=== PATIENT | male | born 1955 | race Caucasian/White ===

== ENCOUNTER 2017-06-03 14:21 | Observation (INO) ==
[2017-06-03 16:42] LABS: Basophils % 0.2 %; Eosinophils # 0.1 K/mcL (0.0-0.6); Eosinophils % 1.5 %; Hematocrit 50.1 % (37.5-50.1); Hemoglobin 16.5 g/dL (12.9-16.9); Immature Granulocytes % 0.2 % (0-4); Lymphocytes # 1.8 K/mcL (0.6-4.6); Lymphocytes % 21.5 %; Mean Corpuscular HGB Conc 32.9 g/dL (31.6-35.5); Mean Corpuscular Hemoglobin 31.2 pg (28.0-33.3); Mean Corpuscular Volume 94.7 fL (83.0-100.0); Mean Platelet Volume 9.8 fL (9.4-12.4); Monocytes # 0.6 K/mcL (0.0-1.3); Monocytes % 7.7 %; Neutrophils # 5.7 K/mcL (1.6-8.9); Platelet Count 328 K/mcL (140-400); Red Blood Count 5.29 M/mcL (4.19-5.50); Red Cell Distribution Width 13.2 % (11.5-14.5); Segmented Neutrophils % 68.9 %
[2017-06-03 16:47] LABS: Prothrombin Time 10.9 Seconds (9.4-12.1)
--- NOTE | 2017-06-03 16:53 | Electrocardiograph Report ---
[place] [id number] Test Date: 2017-06-03 Pat Name: Baldemar Jerome Department: 104 Room: Gender: M Assembly Lead Person: : 1955 Requested By: Sammy Fine Order Number: [id number] Reading MD: Emy Yoder Measurements Intervals [place] Rate: 74 P: 37 W[place]: 147 QRS: -38 QRSD: 90 T: 50 QT: 349 QTc: 376 Interpretive Statements SINUS RHYTHM MARKED LEFT AXIS DEVIATION Electronically Signed On 06-03-2017 16:51:17 EDT by Emy Yoder
[2017-06-03 17:00] LABS: Troponin I < 0.03 ng/mL (< 0.04)
[2017-06-03 17:59] LABS: BUN/Creatinine Ratio 13 (6-26); Blood Urea Nitrogen 10 mg/dL (6-20); Calcium 9.7 mg/dL (8.6-10.3); Carbon Dioxide 25 mEq/L (23-29); Chloride 107 mEq/L (98-107); Glucose 83 mg/dL (70-105); Osmolality,Calculated 292 (280-300); Potassium 4.6 mEq/L (3.5-5.1); Sodium 142 mEq/L (136-145); eGFR For African Americans > 60 (> 60); eGFR For Non-African Americans > 60 (> 60)
[2017-06-03] MEDS ORDERED: Ipratropium/Albuterol Neb 3 ML IH ONE (18:19)
--- NOTE | 2017-06-03 18:21 | Emergency Department Note ---
Disposition Clinical Impression: Unstable angina Chest pain Qualifiers: Chest pain type: unspecified Qualified Code(s): R07.9 - Chest pain, unspecified Disposition: Admitted As Inpatient Condition: Undetermined Referrals: Florencio Carcamo MD [Primary Care Provider] - Forms: ED Satisfaction Letter Time of Disposition: 20:42 Chest Pain HPI - General Chief Complaint: ED Chest Pain Stated Complaint: Chest Pain Time Seen by Provider: 06/03/17 18:10 Source: patient Mode of arrival: ambulatory Limitations: no limitations Vital Signs Reviewed: Yes Nursing Notes Reviewed: Yes - History of Present Illness HPI Narrative: 61-year-old male with history of smoking, an extensive family history of cardiac disease arrives to the emergency department with complaint of shortness of breath and chest pressure on ambulation primarily when he walks up the incline her steps. The patient states that over the past few days the chest pressure has not subsided and he is having chest pressure at rest. The patient denies any other complaints at this time. He is resting comfortably in the room with stable vital signs. The patient stating that the pressure is on the left lateral chest. The does state that he has been coughing more than normal. He denies any hemoptysis, unilateral leg swelling, recent surgeries, recent immobilizations, history of DVT or PE. Pt complaint: chest pain Severity scale (1-10): 4 Quality: heaviness Associated symptoms: Reports: dyspnea Treatments prior to arrival chest pain: none - Related Data Home Medications Medication Instructions Recorded Confirmed Naproxen Sodium [Aleve] 220 mg PO Q12H PRN 06/03/17 06/03/17 Nitroglycerin [Nitrostat] 0.4 mg SL Q5M PRN 06/03/17 06/03/17 Allergies Allergy/AdvReac Type Severity Reaction Status Date / Time Oxycodone [From Percocet] Allergy See Comment Verified 06/03/17 20:30 Constitutional: Denies: fever, chills, weakness ENT ED: Denies: congestion Cardiovascular: Reports: chest pain, dyspnea on exertion. Denies: orthopnea, syncope Respiratory: Reports: cough, dyspnea. Denies: wheezes, hemoptysis, stridor, sputum production Gastrointestinal: Denies: abdominal pain Musculoskeletal: Denies: back pain Chest Pain PMH - Past Medical History Medical history: Reports: no medical history Surgical history: Reports: cholecystectomy Psychiatric history: Reports: no psych history - Social History Smoking Status: Current every day smoker Alcohol use: Reports: none Drug use: Reports: none Physical Exam - General Limitations: no limitations General appearance: alert, in no apparent distress - Head Head exam: atraumatic, normocephalic, normal inspection - Neck Neck exam: Present: normal inspection, full ROM, trachea midline - Chest Chest inspection: Present: normal inspection, symmetric chest wall rise - Respiratory Respiratory exam: Present: other (Mild wheezing noted on examination.) - Cardiovascular Cardiovascular exam: Present: regular rate, normal rhythm, normal heart sounds - Abdominal Exam Abdominal exam: Present: soft, Non-Tender. Absent: tenderness, distention, guarding, rebound, rigidity - Extremities Exam Extremities exam: Present: normal inspection, full ROM. Absent: tenderness, pedal edema - Neurological Exam Neurological exam: Present: alert, oriented X3 Course Vital Signs Temperature 97.9 F 06/03/17 14:24 Pulse Rate 77 06/03/17 14:24 Respiratory Rate 14 06/03/17 14:24 Blood Pressure 144/86 06/03/17 14:24 O2 Sat by Pulse Oximetry 98 06/03/17 14:24 Temperature 97.9 F 06/03/17 14:24 Pulse Rate 69 06/03/17 18:29 Respiratory Rate 16 06/03/17 19:22 Blood Pressure 129/91 06/03/17 18:29 O2 Sat by Pulse Oximetry 96 06/03/17 19:22 Oxygen Delivery Oxygen Delivery Room Air Chest Pain - MDM Narrative Medical decision making narrative: Patient was given a DuoNeb with an attempt to determine if the patient was experiencing tightness associated with decreased air movement associated with possible wheezing. This did not improve the symptoms. He was given nitroglycerin and aspirin at that time. The patient is experiencing concern for previous stable angina but given the patient is still experiencing chest discomfort while sitting and not guarantee exertion, we are concerned about unstable angina. We will admit the patient to the hospital for further workup and care. The patient made aware and agrees to plan. No further questions or concerns noted at this time. Troponin and EKG demonstrated no acute findings. - Lab Data Lab results reviewed: Yes I reviewed the patient's lab results. Result diagrams: 06/03/17 16:03 06/03/17 16:03 Lab Results 06/03/17 06/03/17 06/03/17 Range/Units 16:03 16:03 16:03 WBC 8.3 (4.3-11.1) K/mcL RBC 5.29 (4.19-5.50) M/mcL Hgb 16.5 (12.9-16.9) g/dL Hct 50.1 (37.5-50.1) % MCV 94.7 (83.0-100.0) fL MCH 31.2 (28.0-33.3) pg MCHC 32.9 (31.6-35.5) g/dL RDW 13.2 (11.5-14.5) % Plt Count 328 (140-400) K/mcL MPV 9.8 (9.4-12.4) fL Immature Gran % 0.2 (0-4) % Seg Neutrophils % 68.9 % Lymphocytes % 21.5 % Monocytes % 7.7 % Eosinophils % 1.5 % Basophils % 0.2 % Neutrophils # 5.7 (1.6-8.9) K/mcL Lymphocytes # 1.8 (0.6-4.6) K/mcL Monocytes # 0.6 (0.0-1.3) K/mcL Eosinophils # 0.1 (0.0-0.6) K/mcL Basophils # 0.0 (0.0-0.2) K/mcL PT 10.9 (9.4-12.1) Seconds INR 1.0 APTT 31.0 (26.0-36.0) Seconds Sodium 142 (136-145) mEq/L Potassium 4.6 (3.5-5.1) mEq/L Chloride 107 (98-107) mEq/L Carbon Dioxide 25 (23-29) mEq/L BUN 10 (6-20) mg/dL Creatinine 0.80 (0.70-1.30) mg/dL Est GFR ( Amer) > 60 (> 60) Est GFR (Non-Af Amer) > 60 (> 60) BUN/Creatinine Ratio 13 (6-26) Glucose 83 (70-105) mg/dL Calculated Osmolality 292 (280-300) Calcium 9.7 (8.6-10.3) mg/dL Troponin I < 0.03 (< 0.04) ng/mL - Radiology Data Radiology results reviewed: Yes I reviewed the patient's radiology results. - EKG Data EKG attestation: Yes I reviewed and interpreted this EKG. EKG results narrative: Heart rate 74 bpm. Normal sinus rhythm. No ST elevation or ST depression noted. Heart Score - Score History: Highly Suspicious EKG: Normal Age: 45-65 Risk Factors: Equal/Greater than 3 risk factor or history of atherosclerotic disease Troponin: Less than normal limit HEART Score Total: 5 Attestation Statement - Attestation Attestation: I, Abner Flores DO, examined this patient [id number] and my medical decision-making was reviewed with Renetta Travis DO, Resident Physician. I agree with the documented findings, disposition and treatment plan as described except to the extent set forth below. Please see my progress notes for details. 61-year-old male seen and examined in conjunction with resident physician. Presents here today with exertional left-sided chest wall pain that radiates up into the anterior aspect of the chest. Patient has no specific cardiac history this time. He does have esophageal achalasia. He denies any trauma or injury. Denies any other symptoms except for several days of persistently worsening exertional dyspnea and exertional chest wall pain and symptoms. Physical exam is unremarkable. Lungs appear to be clear. Heart is regular. Abdomen is soft there is mild tenderness over the left lateral aspect of the chest wall. No rashes or lesions noted. There is no crepitus or deformity. Patient describes being symptom-free here in the emergency room despite every time he goes to walk up a hill or to reach over to knot picker cloth something he has severe pain in the left side of his chest. Patient cardiac workup or treatment course started out in the triage process. Patient negative troponin here. The treatments were given to see if it was some aspect of respiratory related issues secondary to smoking history. Patient did not have any resolution of the breathing issues. Lengthy discussion was described and reviewed at the bedside with concern for possible anginal-like presentation. Patient and family both understand this and appreciate her concern. Patient will be provided with an aspirin here and nitroglycerin trial. We recommended admission for further workup and management and possible evaluation with echocardiogram, stress test or catheterization. Patient does have some significant respiratory including his age smoking history as well as presenting symptoms and exertional presentation. Patient otherwise rested comfortably in the bed. Vital signs are stable. See detailed documentation of the physical exam, medical intervention, medical decision-making and disposition in the resident physician's note. No critical care provider this patient's treatment course at this time 2015 Patient will be admitted to the hospital this time. Patient has had some moderate resolution of the symptoms. Nitroglycerin trial is still in completed. No need for anticoagulation at this point. Patient is otherwise clinically stable. Admission process will be completed for angina-like presentation.
[2017-06-03] MEDS ORDERED: Aspirin 325 MG TABLET PO ONE (19:31)
[2017-06-03] MEDS ORDERED: Nitroglycerin 0.4 MG TAB.SUBL SL PRN (19:31)
[2017-06-04] MEDS ORDERED: Naloxone 0.4 MG/ML INJ IVP PRN (03:28)
[2017-06-04] MEDS ORDERED: Acetaminophen 325 MG TABLET PO PRN (03:28)
[2017-06-04 04:39] LABS: Basophils % 0.5 %; Eosinophils # 0.2 K/mcL (0.0-0.6); Eosinophils % 2.8 %; Hematocrit 44.7 % (37.5-50.1); Hemoglobin 15.3 g/dL (12.9-16.9); Immature Granulocytes % 0.1 % (0-4); Lymphocytes % 27.3 %; Mean Corpuscular HGB Conc 34.2 g/dL (31.6-35.5); Mean Corpuscular Hemoglobin 31.7 pg (28.0-33.3); Mean Corpuscular Volume 92.7 fL (83.0-100.0); Mean Platelet Volume 9.8 fL (9.4-12.4); Monocytes # 0.8 K/mcL (0.0-1.3); Neutrophils # 4.4 K/mcL (1.6-8.9); Platelet Count 309 K/mcL (140-400); Red Blood Count 4.82 M/mcL (4.19-5.50); Red Cell Distribution Width 13.2 % (11.5-14.5); Segmented Neutrophils % 59.3 %
--- NOTE | 2017-06-04 04:47 | Internal Med History&Physical ---
Date of Encounter: 06/04/17 Time of Encounter: 03:00 Assessment and Plan (1) Chest pain Current visit: Yes Status: Acute Patient has chest pain, which is triggered by exercise and response to nitroglycerin. Based on the symptoms, patient seems having stable angina. - Place patient on continuous cardiac monitoring - Check 3 sets of troponin - Place patient on stress test if patient remains pain-free and troponin is negative Qualifiers: Chest pain type: precordial pain Qualified Code(s): R07.2 - Precordial pain (2) Tobacco abuse Current visit: Yes Status: Acute Smoking cessation education. Patient said he does not need nicotine patch Internal Medicine - H&P: HPI Chief complaint: Chest pain Admitted From: Home Plans for Post Hospital Care: Home History of present illness: Mr. Jerome is a 61 year old male without significant past medical history, with history of tobacco smoking, presented to ER for left side chest pressure/pain on and off for about 3-4 months. Patient said chest pain located on left side of chest, radiated to left arm and left neck, usually last 10-30 minutes. Patient has mild shortness of breath when he has the pain. Patient denies nausea or diaphoresis. Patient said that the chest pain can be triggered by exercise, such as climbing up a hill. Patient was given aspirin and nitroglycerin in emergency room today, and he said that these medications are helpful for his chest pain. When I saw patient in the room, he is pain-free and said he is "totally fine". Past Med Surg Social Fam HX - Past Medical History Medical history: no medical history Psychiatric history: no psych history - Past Surgical History Surgical History: cholecystectomy - Social History Smoking Status: Current every day smoker Smokeless Tobacco Status: No Alcohol use: none Drug use: none - Family History Sister Hx Family Cardiac Disorders: Yes (HTN, pacer/defib) Father Hx Family Cardiac Disorders: Yes (AK) Mother Hx Family Cancer: Yes (breast) Internal Medicine - H&P: Meds Naproxen Sodium [Aleve] 220 mg PO Q12H PRN 06/03/17 [History] Nitroglycerin [Nitrostat] 0.4 mg SL Q5M PRN 06/03/17 [History] 3 Allergy/AdvReac Type Severity Reaction Status Date / Time Oxycodone [From Percocet] Allergy See Comment Verified 06/03/17 20:30 All Systems PM: A 10-system review of systems was performed and is negative for pertinent findings except as documented above in the HPI. - Constitutional Vitals: Temp Pulse Resp BP Pulse Ox 97.9 F 68 14 99/59 95 06/04/17 04:01 06/04/17 04:01 06/04/17 04:01 06/04/17 04:01 06/04/17 04:01 General appearance: Present: A&O X 3, pleasant, no acute distress, answers questions appropriately - Head Head exam: Present: atraumatic, normocephalic - Eye Eye exam: Present: PERRL, conjuntiva pink, sclera anicteric Pupils: Present: PERRL - Neck Neck exam general surgery: Present: supple, trachea midline. Absent: lymphadenopathy - Respiratory Respiratory exam: Present: CTAB. Absent: accessory muscle use, rales, rhonchi, wheezes - Cardiovascular Cardiovascular exam: Present: RRR, +S1, +S2. Absent: diastolic murmur, gallop, rubs, systolic murmur - GI/Abdominal GI/Abdominal exam: Present: normal bowel sounds, soft, no peritoneal signs. Absent: distended, tenderness - Extremities Exam Extremities exam: Present: warm, radial pulses palpable and symmetrical. Absent : calf tenderness, cyanotic, pedal edema - Neurological Exam Neurological exam: Present: CN II-XII intact, oriented X3, no focal deficits. Absent: pronater drift, facial droop, speech deficit - Skin Skin exam: Present: dry, intact Internal Med - H&P Results - Labs CBC & Chem 7: 06/03/17 16:03 06/03/17 16:03
[2017-06-04 04:54] LABS: BUN/Creatinine Ratio 18 (6-26); Blood Urea Nitrogen 13 mg/dL (6-20); Calcium 9.2 mg/dL (8.6-10.3); Carbon Dioxide 25 mEq/L (23-29); Chloride 107 mEq/L (98-107); Glucose 97 mg/dL (70-105); Magnesium 2.2 mg/dL (1.6-2.6); Osmolality,Calculated 288 (280-300); Potassium 3.5 mEq/L (3.5-5.1); Sodium 139 mEq/L (136-145); eGFR For African Americans > 60 (> 60); eGFR For Non-African Americans > 60 (> 60)
[2017-06-04] MEDS ORDERED: Regadenoson 0.4 MG/5 ML SYRINGE IVP ONE (06:46)
[2017-06-04 11:04] LABS: Chol/HDL Ratio 4.8 (0-4.9)
[2017-06-04 14:57] VITALS: BP 107/66
--- NOTE | 2017-06-04 15:59 | Discharge Summary ---
Orders not resulted at time of discharge: Pending orders 06/04/17 03:30 NM jalen perf SPECT multi [NM] Routine Date of Encounter: 06/04/17 Time of Encounter: 10:35 - Discharge Diagnosis (1) Chest pain Priority: Primary Status: Acute Comments: Patient reports chest pain for "several months." He reports pressure all over the left side of his chest down to his waist while walking up a hill with his granddaughter. Pressure lasted approximately one hour with shortness of breath , no nausea, no vomiting, no diaphoresis. Episode happened on 06/01, patient did not arrive until 06/03. Episode resolved with rest Troponins were negative 2. Patient's cholesterol is only mildly elevated faces at 206. Patient is thin and apparently very active, I will start him on a statin. Patient denies any chest pain since that initial episode. The pain is not reproducible with palpation, deep inspiration, or movement. EKG was normal sinus without any ST changes. Stress test was negative for ischemia or infarct, gated EF 61%. Recommend risk factor modification including starting statin and aspirin, as well as smoking cessation. Patient has prescription for nitroglycerin, continue use at home, continue aspirin, continue statin Qualifiers: Chest pain type: precordial pain Qualified Code(s): R07.2 - Precordial pain (2) HLD (hyperlipidemia) Priority: Secondary Status: Acute Comments: Cholesterol is only mildly elevated, will start on statin due to need for risk factor modification. Qualifiers: Hyperlipidemia type: unspecified Qualified Code(s): E78.5 - Hyperlipidemia , unspecified (3) Tobacco abuse Priority: Secondary Status: Chronic Comments: Patient smokes approximately one pack per day, he states that he is aware that he needs to stop smoking but has declined nicotine replacement therapy. Hospital course: Mr. Jerome is a 61 year old male with past medical history of chest pain, unstable angina, smoking, hyperlipidemia. Patient reports several month history of left chest pain with exertion. Patient indicates that pain is entire left side of chest from sternum to mid axillary area, including from left shoulder to waist. Patient also reports associated shortness of breath during episode 3 days ago. He denies any nausea, vomiting, or diaphoresis. The episode lasted approximately one hour and was relieved with rest. Patient finally presented to the emergency room 2 days later, he states that he was frightened. Patient with mildly elevated cholesterol, patient is thin and active, will add a statin. She also is a one pack per day smoker. We discussed smoking cessation, he is aware that he needs to stop smoking, however , he denies any need for assistance including nicotine replacement therapy. Recommended that patient follow up closely with primary care in the next 7-10 days and continue to take already prescribed nitroglycerin as needed for his chest pain. EKG was negative for ST changes, was normal sinus rhythm. Stress test was negative for ischemia or infarct with a gated EF of 61%, troponins were negative 2, chest x-ray was negative.. The pain is not reproducible with palpation, movement, or deep inspiration. His lungs are clear throughout, there is no respiratory distress. Recommended that patient follow up with primary care and cardiology for continued ischemic evaluation/workup. Discharge discussed with: patient Time spent discussing smoking cessation with patient: 3 to 10 minutes - Time Spent with Patient Total time spent providing and/or coordinating discharge services: Less than 30 minutes - Discharge Medications Prescriptions: Aspirin Enteric Coated [Aspirin EC] 81 mg PO DAILY #30 tablet. Atorvastatin Calcium [Lipitor] 20 mg PO HS #30 tablet Home Medications: Naproxen Sodium [Aleve] 220 mg PO Q12H PRN 06/03/17 [History] Nitroglycerin [Nitrostat] 0.4 mg SL Q5M PRN 06/03/17 [History] Aspirin Enteric Coated [Aspirin EC] 81 mg PO DAILY #30 tablet. 06/04/17 [Rx] Atorvastatin Calcium [Lipitor] 20 mg PO HS #30 tablet 06/04/17 [Rx] Allergies/Adverse Reactions: 3 Allergy/AdvReac Type Severity Reaction Status Date / Time Oxycodone [From Percocet] Allergy See Comment Verified 06/03/17 20:30 Date of admission: 06/03/17 21:08 Primary care physician: Florencio Carcamo MD Discharging clinician: Missy Springer Anticipated date of discharge: 06/04/17 - Constitutional Vitals: Temp Pulse Resp BP Pulse Ox 97.6 F 73 18 107/66 95 06/04/17 14:56 06/04/17 14:56 06/04/17 14:56 06/04/17 14:56 06/04/17 14:56 General appearance: Present: cooperative, A&O X 3, pleasant, no acute distress, answers questions appropriately - Head Head exam: Present: atraumatic, normal inspection, normocephalic - Eye Eye exam: Present: normal appearance, conjuntiva pink, sclera anicteric - Neck Neck exam general surgery: Present: supple, trachea midline. Absent: lymphadenopathy, tenderness - Respiratory Respiratory exam: Present: CTAB. Absent: accessory muscle use, rales, rhonchi, wheezes - Cardiovascular Cardiovascular exam: Present: RRR, +S1, +S2. Absent: diastolic murmur, gallop, rubs, systolic murmur - GI/Abdominal GI/Abdominal exam: Present: normal bowel sounds, soft. Absent: distended, hepatomegaly, tenderness - Extremities Exam Extremities exam: Present: normal capillary refill, warm, radial pulses palpable and symmetrical. Absent: calf tenderness, cyanotic, pedal edema, tenderness - Neurological Exam Neurological exam: Present: alert, oriented X3, no focal deficits. Absent: facial droop, speech deficit - Skin Skin exam: Present: dry, intact, normal color, warm. Absent: rash - Patient Status Disposition: Home, Self-Care Condition: Good Functional capacity at discharge: independent ambulation Overall status at discharge: patient is back to baseline - Discharge Instructions Follow Up With: Florencio Carcamo MD [Primary Care Provider] - Additional Instructions: Please follow up with primary care provider and cardiology within the next 7-10 days for continued monitoring and workup. Take nitroglycerin that you already have at home for chest pain. Take aspirin and Lipitor daily. Continue other home medications as written. Stop smoking. I will be happy to write you a prescription for nicotine patches or come before you leave. Resume her normal activities and diet as tolerated. Return to the emergency department as needed if your symptoms return or worsen, or if you have any other problems. - Diet and Activity Activity: increase activity as tolerated Diet: low fat, low cholesterol, low salt diet
== END 2017-06-04 17:27 | disposition home or self-care (01) ==
LOC: 3BNU 14:21 → EMEROO 14:21 → 3BNU 22:40
PROVIDERS: ADMIT Internal Medicine Cardiovascular Disease; ATTEND Registered Nurse

== ENCOUNTER 2020-04-05 19:42 | Observation (INO) ==
[2020-04-05] MEDS ORDERED: 0.9 % Sodium Chloride 1,000 ML IVC ONE (19:58)
[2020-04-05 20:15] LABS: Basophils % 0.5 %; Eosinophils # 0.2 K/mcL (0.0-0.6); Eosinophils % 2.3 %; Hematocrit 46.6 % (37.5-50.1); Hemoglobin 15.5 g/dL (12.9-16.9); Immature Granulocytes % 0.2 % (0-4); Lymphocytes # 1.7 K/mcL (0.6-4.6); Lymphocytes % 18.8 %; Mean Corpuscular HGB Conc 33.3 g/dL (31.6-35.5); Mean Corpuscular Hemoglobin 30.9 pg (28.0-33.3); Mean Corpuscular Volume 92.8 fL (83.0-100.0); Mean Platelet Volume 9.2 fL (9.4-12.4); Monocytes # 1.2 K/mcL (0.0-1.3); Monocytes % 13.1 %; Neutrophils # 5.7 K/mcL (1.6-8.9); Platelet Count 323 K/mcL (140-400); Red Blood Count 5.02 M/mcL (4.19-5.50); Red Cell Distribution Width 12.7 % (11.5-14.5); Segmented Neutrophils % 65.1 %; White Blood Count 8.8 K/mcL (4.3-11.1)
[2020-04-05] MEDS: DilTIAZem 50 MG/50 ML IV.SOLN IVC SCH (20:30)
[2020-04-05 20:32] LABS: BUN/Creatinine Ratio 15 (6-26); Blood Urea Nitrogen 14 mg/dL (8-23); Calcium 9.5 mg/dL (8.6-10.3); Carbon Dioxide 28 mEq/L (23-29); Chloride 105 mEq/L (98-107); Glucose 122 mg/dL (70-105); Osmolality,Calculated 292 (280-300); Potassium 3.8 mEq/L (3.5-5.1); Sodium 140 mEq/L (136-145); eGFR For African Americans > 60 (> 60); eGFR For Non-African Americans > 60 (> 60)
[2020-04-05 20:33] LABS: Troponin I < 0.03 ng/mL (< 0.04)
[2020-04-05 20:46] LABS: Thyroid Stimulating Hormone 1.876 mcIU/mL (0.340-5.600)
[2020-04-05] MEDS ORDERED: Perflutren Lipid Microsphere 1.3 ML in 0.9 % Sodium Chloride 8.7 ML IVP PRN (22:40)
[2020-04-05] MEDS ORDERED: Naloxone 0.4 MG/ML INJ IVP PRN (22:53)
[2020-04-05] MEDS ORDERED: *HR* Metoprolol 5 MG/5 ML VIAL IVP ONE (23:02)
[2020-04-06] MEDS: *HR* Heparin 5,000 UNIT/ML VIAL SQ SCH ×4 (00:33→20:22)
[2020-04-06] MEDS: DilTIAZem 50 MG/50 ML IV.SOLN IVC SCH ×3 (00:41→22:41)
[2020-04-06 02:50] LABS: Hematocrit 44.7 % (37.5-50.1); Hemoglobin 14.9 g/dL (12.9-16.9); Mean Corpuscular HGB Conc 33.3 g/dL (31.6-35.5); Mean Corpuscular Hemoglobin 31.4 pg (28.0-33.3); Mean Corpuscular Volume 94.3 fL (83.0-100.0); Mean Platelet Volume 9.5 fL (9.4-12.4); Platelet Count 304 K/mcL (140-400); Red Blood Count 4.74 M/mcL (4.19-5.50); Red Cell Distribution Width 12.6 % (11.5-14.5); White Blood Count 6.7 K/mcL (4.3-11.1)
[2020-04-06 02:53] LABS: Prothrombin Time 12.1 Seconds (9.4-12.1)
[2020-04-06 02:56] LABS: Activated Partial Thrombo Time 29.4 Seconds (26.0-36.0)
[2020-04-06 03:11] LABS: Chol/HDL Ratio 4.7 (0-4.9)
[2020-04-06 03:12] LABS: BUN/Creatinine Ratio 21 (6-26); Blood Urea Nitrogen 16 mg/dL (8-23); Calcium 8.9 mg/dL (8.6-10.3); Carbon Dioxide 26 mEq/L (23-29); Chloride 108 mEq/L (98-107); Glucose 98 mg/dL (70-105); Magnesium 2.2 mg/dL (1.6-2.6); Osmolality,Calculated 291 (280-300); Potassium 4.1 mEq/L (3.5-5.1); Sodium 140 mEq/L (136-145); eGFR For African Americans > 60 (> 60); eGFR For Non-African Americans > 60 (> 60)
[2020-04-06 03:40] LABS: Estimated Average Glucose 117 mg/dl; Hemoglobin A1C 5.7 %
[2020-04-06] MEDS ORDERED: Loratadine 10 MG TABLET PO PRN (09:00)
[2020-04-06] MEDS: Aspirin Enteric Coated 81 MG Tablet PO SCH (10:06)
[2020-04-06] MEDS: Metoprolol XL (24 HR) Succ 25 MG TAB.ER.24H PO SCH (20:22)
[2020-04-07] MEDS: *HR* Heparin 5,000 UNIT/ML VIAL SQ SCH ×2 (04:55→10:01)
[2020-04-07 05:16] LABS: Hemoglobin 15.6 g/dL (12.9-16.9); Mean Corpuscular HGB Conc 32.5 g/dL (31.6-35.5); Mean Corpuscular Hemoglobin 30.1 pg (28.0-33.3); Mean Corpuscular Volume 92.7 fL (83.0-100.0); Mean Platelet Volume 9.2 fL (9.4-12.4); Platelet Count 304 K/mcL (140-400); Red Blood Count 5.18 M/mcL (4.19-5.50); Red Cell Distribution Width 12.4 % (11.5-14.5); White Blood Count 5.9 K/mcL (4.3-11.1)
[2020-04-07 05:38] LABS: BUN/Creatinine Ratio 15 (6-26); Blood Urea Nitrogen 11 mg/dL (8-23); Calcium 9.1 mg/dL (8.6-10.3); Carbon Dioxide 25 mEq/L (23-29); Chloride 105 mEq/L (98-107); Glucose 91 mg/dL (70-105); Osmolality,Calculated 283 (280-300); Potassium 4.1 mEq/L (3.5-5.1); Sodium 137 mEq/L (136-145); eGFR For African Americans > 60 (> 60); eGFR For Non-African Americans > 60 (> 60)
[2020-04-07] MEDS: Aspirin Enteric Coated 81 MG Tablet PO SCH (07:24)
[2020-04-07] MEDS: Metoprolol XL (24 HR) Succ 25 MG TAB.ER.24H PO SCH (07:24)
[2020-04-07 11:11] VITALS: BP 117/68
== END 2020-04-07 14:50 | disposition home or self-care (01) ==
LOC: EMEROOARM 19:42 → 2ANU 19:42 → SUATTDRO 22:34 → 2ANU 22:56
PROVIDERS: ADMIT Student in an Organized Health Care Education/Training Program; ATTEND Internal Medicine

== ENCOUNTER 2020-05-16 10:28 | Observation (INO) ==
[2020-05-16] MEDS ORDERED: *HR* Metoprolol 5 MG/5 ML VIAL IVP ONE (10:59)
[2020-05-16 11:18] LABS: INR 1.2
[2020-05-16 11:21] LABS: Activated Partial Thrombo Time 35.2 Seconds (26.0-36.0); Basophils % 0.4 %; Eosinophils # 0.1 K/mcL (0.0-0.6); Eosinophils % 1.7 %; Hematocrit 50.4 % (37.5-50.1); Hemoglobin 16.9 g/dL (12.9-16.9); Immature Granulocytes % 0.4 % (0-4); Lymphocytes # 1.8 K/mcL (0.6-4.6); Mean Corpuscular HGB Conc 33.5 g/dL (31.6-35.5); Mean Corpuscular Hemoglobin 31.1 pg (28.0-33.3); Mean Corpuscular Volume 92.6 fL (83.0-100.0); Mean Platelet Volume 9.4 fL (9.4-12.4); Monocytes # 0.8 K/mcL (0.0-1.3); Monocytes % 10.6 %; Neutrophils # 4.5 K/mcL (1.6-8.9); Platelet Count 341 K/mcL (140-400); Red Blood Count 5.44 M/mcL (4.19-5.50); Segmented Neutrophils % 61.9 %; White Blood Count 7.2 K/mcL (4.3-11.1)
[2020-05-16 11:36] LABS: BUN/Creatinine Ratio 14 (6-26); Blood Urea Nitrogen 11 mg/dL (8-23); Calcium 9.8 mg/dL (8.6-10.3); Carbon Dioxide 26 mEq/L (23-29); Chloride 107 mEq/L (98-107); Glucose 75 mg/dL (70-105); Osmolality,Calculated 288 (280-300); Potassium 4.1 mEq/L (3.5-5.1); Sodium 140 mEq/L (136-145); Troponin I < 0.03 ng/mL (< 0.04); eGFR For African Americans > 60 (> 60); eGFR For Non-African Americans > 60 (> 60)
[2020-05-16] MEDS ORDERED: Ondansetron 4 MG/2 ML VIAL IVP PRN (13:22)
[2020-05-16] MEDS ORDERED: Naloxone 0.4 MG/ML INJ IVP PRN (13:22)
[2020-05-16] MEDS ORDERED: Acetaminophen 325 MG TABLET PO PRN (13:22)
[2020-05-16] MEDS ORDERED: Nitroglycerin 0.4 MG TAB.SUBL SL PRN (13:23)
[2020-05-16] MEDS ORDERED: Metoprolol XL (24 HR) Succ 50 MG TAB.ER.24H PO ONE (21:00)
[2020-05-16] MEDS: Apixaban 5 MG TABLET PO SCH (22:30)
[2020-05-17 06:47] LABS: Hematocrit 49.1 % (37.5-50.1); Hemoglobin 16.3 g/dL (12.9-16.9); Mean Corpuscular HGB Conc 33.2 g/dL (31.6-35.5); Mean Corpuscular Hemoglobin 30.6 pg (28.0-33.3); Mean Corpuscular Volume 92.1 fL (83.0-100.0); Mean Platelet Volume 9.2 fL (9.4-12.4); Platelet Count 310 K/mcL (140-400); Red Blood Count 5.33 M/mcL (4.19-5.50); White Blood Count 7.5 K/mcL (4.3-11.1)
[2020-05-17 06:51] LABS: INR 1.1; Prothrombin Time 13.1 Seconds (9.4-12.1)
[2020-05-17 06:54] LABS: Activated Partial Thrombo Time 32.8 Seconds (26.0-36.0)
[2020-05-17 07:09] LABS: BUN/Creatinine Ratio 15 (6-26); Blood Urea Nitrogen 12 mg/dL (8-23); Calcium 9.6 mg/dL (8.6-10.3); Carbon Dioxide 27 mEq/L (23-29); Chloride 104 mEq/L (98-107); Chol/HDL Ratio 4.9 (0-4.9); Cholesterol 249 mg/dL (< 200); Glucose 91 mg/dL (70-105); HDL Cholesterol 51 mg/dL (40-59); LDL Cholesterol,Calculated 162 mg/dL (< 100); Magnesium 2.2 mg/dL (1.6-2.6); Osmolality,Calculated 285 (280-300); Sodium 138 mEq/L (136-145); Triglycerides 179 mg/dL (< 150); eGFR For African Americans > 60 (> 60); eGFR For Non-African Americans > 60 (> 60)
[2020-05-17] MEDS ORDERED: Isovue-370 500 ML BOTTLE IVP ONE (08:00)
[2020-05-17] MEDS ORDERED: *HR* Metoprolol 5 MG/5 ML VIAL IVP PRN (08:00)
[2020-05-17] MEDS ORDERED: Metoprolol XL (24 HR) Succ 25 MG TAB.ER.24H PO SCH (09:00)
[2020-05-17] MEDS ORDERED: 0.9 % Sodium Chloride 1,000 ML ONE (09:27)
[2020-05-17] MEDS: Aspirin Enteric Coated 81 MG Tablet PO SCH (11:21)
[2020-05-17] MEDS: Apixaban 5 MG TABLET PO SCH ×2 (11:21→20:22)
[2020-05-17] MEDS: Metoprolol XL (24 HR) Succ 25 MG TAB.ER.24H PO SCH (16:02)
[2020-05-18 03:02] LABS: Hematocrit 48.4 % (37.5-50.1); Hemoglobin 15.8 g/dL (12.9-16.9); Mean Corpuscular HGB Conc 32.6 g/dL (31.6-35.5); Mean Corpuscular Hemoglobin 30.5 pg (28.0-33.3); Mean Corpuscular Volume 93.4 fL (83.0-100.0); Mean Platelet Volume 9.5 fL (9.4-12.4); Platelet Count 307 K/mcL (140-400); Red Blood Count 5.18 M/mcL (4.19-5.50); Red Cell Distribution Width 13.1 % (11.5-14.5); White Blood Count 7.7 K/mcL (4.3-11.1)
[2020-05-18 03:19] LABS: BUN/Creatinine Ratio 17 (6-26); Blood Urea Nitrogen 13 mg/dL (8-23); Calcium 9.4 mg/dL (8.6-10.3); Carbon Dioxide 26 mEq/L (23-29); Chloride 105 mEq/L (98-107); Glucose 93 mg/dL (70-105); Osmolality,Calculated 286 (280-300); Potassium 3.9 mEq/L (3.5-5.1); Sodium 138 mEq/L (136-145); eGFR For African Americans > 60 (> 60); eGFR For Non-African Americans > 60 (> 60)
[2020-05-18] MEDS: Aspirin Enteric Coated 81 MG Tablet PO SCH (08:32)
[2020-05-18] MEDS: Apixaban 5 MG TABLET PO SCH ×2 (08:32→21:53)
[2020-05-18] MEDS: Metoprolol XL (24 HR) Succ 25 MG TAB.ER.24H PO SCH (08:32)
[2020-05-19 07:36] VITALS: BP 107/66
[2020-05-19] MEDS: Apixaban 5 MG TABLET PO SCH (08:19)
[2020-05-19] MEDS: Aspirin Enteric Coated 81 MG Tablet PO SCH (08:19)
[2020-05-19] MEDS: Metoprolol XL (24 HR) Succ 25 MG TAB.ER.24H PO SCH (08:19)
== END 2020-05-19 10:25 | disposition home or self-care (01) ==
LOC: 3BNU 10:28 → EMEROOARM 10:28 → SUATTDRO 13:25 → 3BNU 13:47
PROVIDERS: ADMIT Internal Medicine; ATTEND Internal Medicine

== ENCOUNTER 2020-05-19 17:08 | Observation (INO) ==
[2020-05-19 17:38] LABS: Basophils % 0.3 %; Eosinophils # 0.2 K/mcL (0.0-0.6); Eosinophils % 1.7 %; Hematocrit 48.9 % (37.5-50.1); Hemoglobin 16.8 g/dL (12.9-16.9); Immature Granulocytes % 0.3 % (0-4); Mean Corpuscular HGB Conc 34.4 g/dL (31.6-35.5); Mean Corpuscular Hemoglobin 31.1 pg (28.0-33.3); Mean Corpuscular Volume 90.4 fL (83.0-100.0); Mean Platelet Volume 9.3 fL (9.4-12.4); Monocytes # 0.9 K/mcL (0.0-1.3); Monocytes % 10.4 %; Neutrophils # 5.5 K/mcL (1.6-8.9); Platelet Count 332 K/mcL (140-400); Red Blood Count 5.41 M/mcL (4.19-5.50); Segmented Neutrophils % 64.3 %; White Blood Count 8.6 K/mcL (4.3-11.1)
[2020-05-19 17:57] LABS: BUN/Creatinine Ratio 16 (6-26); Blood Urea Nitrogen 15 mg/dL (8-23); Calcium 9.5 mg/dL (8.6-10.3); Carbon Dioxide 27 mEq/L (23-29); Chloride 105 mEq/L (98-107); Glucose 98 mg/dL (70-105); Magnesium 2.2 mg/dL (1.6-2.6); Osmolality,Calculated 287 (280-300); Potassium 3.6 mEq/L (3.5-5.1); Sodium 138 mEq/L (136-145); eGFR For African Americans > 60 (> 60); eGFR For Non-African Americans > 60 (> 60)
[2020-05-19 19:08] LABS: Troponin I < 0.03 ng/mL (< 0.04)
[2020-05-19] MEDS ORDERED: Naloxone 0.4 MG/ML INJ IVP PRN (20:52)
[2020-05-19] MEDS ORDERED: Acetaminophen 325 MG TABLET PO PRN (20:52)
[2020-05-19] MEDS ORDERED: Ondansetron 4 MG/2 ML VIAL IVP PRN (20:52)
[2020-05-20 05:49] LABS: Hematocrit 48.5 % (37.5-50.1); Hemoglobin 16.3 g/dL (12.9-16.9); Mean Corpuscular HGB Conc 33.6 g/dL (31.6-35.5); Mean Corpuscular Hemoglobin 31.2 pg (28.0-33.3); Mean Corpuscular Volume 92.7 fL (83.0-100.0); Mean Platelet Volume 9.4 fL (9.4-12.4); Platelet Count 310 K/mcL (140-400); Red Blood Count 5.23 M/mcL (4.19-5.50); Red Cell Distribution Width 12.9 % (11.5-14.5); White Blood Count 7.3 K/mcL (4.3-11.1)
[2020-05-20 05:59] LABS: Prothrombin Time 12.1 Seconds (9.4-12.1)
[2020-05-20 06:01] LABS: Activated Partial Thrombo Time 30.3 Seconds (26.0-36.0)
[2020-05-20 06:09] LABS: BUN/Creatinine Ratio 17 (6-26); Blood Urea Nitrogen 13 mg/dL (8-23); Calcium 9.2 mg/dL (8.6-10.3); Carbon Dioxide 25 mEq/L (23-29); Chloride 107 mEq/L (98-107); Glucose 96 mg/dL (70-105); Osmolality,Calculated 288 (280-300); Sodium 139 mEq/L (136-145); eGFR For African Americans > 60 (> 60); eGFR For Non-African Americans > 60 (> 60)
[2020-05-20] MEDS ORDERED: Metoprolol XL (24 HR) Succ 25 MG TAB.ER.24H PO SCH (09:00)
[2020-05-20] MEDS: Aspirin Enteric Coated 81 MG Tablet PO SCH (11:01)
[2020-05-20] MEDS: Apixaban 5 MG TABLET PO SCH ×2 (11:01→22:25)
[2020-05-21 03:01] LABS: Hemoglobin 15.1 g/dL (12.9-16.9); Mean Corpuscular HGB Conc 33.6 g/dL (31.6-35.5); Mean Corpuscular Hemoglobin 30.1 pg (28.0-33.3); Mean Corpuscular Volume 89.6 fL (83.0-100.0); Mean Platelet Volume 9.3 fL (9.4-12.4); Platelet Count 300 K/mcL (140-400); Red Blood Count 5.02 M/mcL (4.19-5.50); Red Cell Distribution Width 12.8 % (11.5-14.5); White Blood Count 7.8 K/mcL (4.3-11.1)
[2020-05-21 03:21] LABS: BUN/Creatinine Ratio 16 (6-26); Blood Urea Nitrogen 12 mg/dL (8-23); Calcium 8.9 mg/dL (8.6-10.3); Carbon Dioxide 27 mEq/L (23-29); Chloride 106 mEq/L (98-107); Glucose 100 mg/dL (70-105); Osmolality,Calculated 286 (280-300); Potassium 4.1 mEq/L (3.5-5.1); Sodium 138 mEq/L (136-145); eGFR For African Americans > 60 (> 60); eGFR For Non-African Americans > 60 (> 60)
[2020-05-21] MEDS ORDERED: Metoprolol XL (24 HR) Succ 25 MG TAB.ER.24H PO SCH (09:00)
[2020-05-21] MEDS: Aspirin Enteric Coated 81 MG Tablet PO SCH (10:09)
[2020-05-21] MEDS: Apixaban 5 MG TABLET PO SCH ×2 (10:09→20:46)
[2020-05-21] MEDS: Metoprolol XL (24 HR) Succ 25 MG TAB.ER.24H PO SCH ×2 (11:15→20:39)
[2020-05-22 01:41] LABS: BUN/Creatinine Ratio 17 (6-26); Blood Urea Nitrogen 14 mg/dL (8-23); Calcium 9.4 mg/dL (8.6-10.3); Carbon Dioxide 28 mEq/L (23-29); Chloride 105 mEq/L (98-107); Glucose 95 mg/dL (70-105); Magnesium 2.1 mg/dL (1.6-2.6); Osmolality,Calculated 288 (280-300); Potassium 3.5 mEq/L (3.5-5.1); Sodium 139 mEq/L (136-145); eGFR For African Americans > 60 (> 60); eGFR For Non-African Americans > 60 (> 60)
[2020-05-22] MEDS: Apixaban 5 MG TABLET PO SCH ×2 (08:06→19:56)
[2020-05-22] MEDS: Aspirin Enteric Coated 81 MG Tablet PO SCH (08:06)
[2020-05-22] MEDS: Metoprolol XL (24 HR) Succ 25 MG TAB.ER.24H PO SCH ×2 (08:07→10:55)
[2020-05-23] MEDS: Apixaban 5 MG TABLET PO SCH ×2 (09:53→20:13)
[2020-05-23] MEDS: Metoprolol XL (24 HR) Succ 25 MG TAB.ER.24H PO SCH (09:53)
[2020-05-23] MEDS: Aspirin Enteric Coated 81 MG Tablet PO SCH (09:53)
[2020-05-23] MEDS ORDERED: ALPRAZolam 0.5 MG TABLET PO ONE (22:55)
[2020-05-24] MEDS ORDERED: *HR* Metoprolol 5 MG/5 ML VIAL IVP ONE (02:09)
[2020-05-24 03:10] LABS: BUN/Creatinine Ratio 17 (6-26); Blood Urea Nitrogen 13 mg/dL (8-23); Calcium 9.2 mg/dL (8.6-10.3); Carbon Dioxide 24 mEq/L (23-29); Chloride 107 mEq/L (98-107); Glucose 104 mg/dL (70-105); Osmolality,Calculated 288 (280-300); Potassium 4.1 mEq/L (3.5-5.1); Sodium 139 mEq/L (136-145); eGFR For African Americans > 60 (> 60); eGFR For Non-African Americans > 60 (> 60)
[2020-05-24] MEDS: Apixaban 5 MG TABLET PO SCH (10:02)
[2020-05-24] MEDS: Aspirin Enteric Coated 81 MG Tablet PO SCH (10:02)
[2020-05-24] MEDS: Metoprolol XL (24 HR) Succ 25 MG TAB.ER.24H PO SCH (10:03)
[2020-05-24 11:42] VITALS: BP 105/65
== END 2020-05-24 12:45 | disposition home or self-care (01) ==
LOC: 2NENU 17:08 → EMEROOARM 17:08 → SUATTDRO 20:22 → 2NENU 20:57
PROVIDERS: ADMIT Internal Medicine; ATTEND Internal Medicine

== ENCOUNTER 2020-05-25 10:56 | Observation (INO) ==
[2020-05-25] MEDS ORDERED: Aspirin 325 MG TABLET PO ONE (11:17)
[2020-05-25] MEDS ORDERED: 0.9 % Sodium Chloride 500 ML IVC ONE (11:18)
[2020-05-25 11:54] LABS: Basophils % 0.3 %; Eosinophils # 0.1 K/mcL (0.0-0.6); Eosinophils % 0.7 %; Hemoglobin 16.4 g/dL (12.9-16.9); Immature Granulocytes % 0.4 % (0-4); Lymphocytes # 2.1 K/mcL (0.6-4.6); Lymphocytes % 19.5 %; Mean Corpuscular HGB Conc 33.5 g/dL (31.6-35.5); Mean Corpuscular Volume 92.6 fL (83.0-100.0); Mean Platelet Volume 9.8 fL (9.4-12.4); Monocytes # 1.2 K/mcL (0.0-1.3); Monocytes % 10.9 %; Neutrophils # 7.4 K/mcL (1.6-8.9); Platelet Count 342 K/mcL (140-400); Red Blood Count 5.29 M/mcL (4.19-5.50); Red Cell Distribution Width 13.1 % (11.5-14.5); Segmented Neutrophils % 68.2 %; White Blood Count 10.9 K/mcL (4.3-11.1)
[2020-05-25 12:02] LABS: INR 1.3; Prothrombin Time 14.7 Seconds (9.4-12.1)
[2020-05-25 12:14] LABS: BUN/Creatinine Ratio 15 (6-26); Blood Urea Nitrogen 13 mg/dL (8-23); Calcium 9.5 mg/dL (8.6-10.3); Carbon Dioxide 28 mEq/L (23-29); Chloride 107 mEq/L (98-107); Glucose 78 mg/dL (70-105); Magnesium 2.3 mg/dL (1.6-2.6); Osmolality,Calculated 291 (280-300); Potassium 4.1 mEq/L (3.5-5.1); Sodium 141 mEq/L (136-145); eGFR For African Americans > 60 (> 60); eGFR For Non-African Americans > 60 (> 60)
[2020-05-25 12:15] LABS: Troponin I < 0.03 ng/mL (< 0.04)
[2020-05-25 12:28] LABS: Thyroid Stimulating Hormone 1.933 mcIU/mL (0.340-5.600)
[2020-05-25] MEDS: DilTIAZem 50 MG/50 ML IV.SOLN IVC SCH (13:06)
[2020-05-25] MEDS ORDERED: Melatonin 3 MG TABLET PO PRN (14:01)
[2020-05-25] MEDS ORDERED: Naloxone 0.4 MG/ML INJ IVP PRN (14:01)
[2020-05-25] MEDS ORDERED: *HR* Promethazine 25 MG/ML VIAL IM PRN (14:01)
[2020-05-25] MEDS ORDERED: Acetaminophen 325 MG TABLET PO PRN (14:01)
[2020-05-25] MEDS: Metoprolol XL (24 HR) Succ 25 MG TAB.ER.24H PO SCH (17:01)
[2020-05-25] MEDS: Apixaban 5 MG TABLET PO SCH (20:56)
[2020-05-26 06:17] LABS: Basophils % 0.3 %; Eosinophils # 0.1 K/mcL (0.0-0.6); Eosinophils % 1.7 %; Hematocrit 45.5 % (37.5-50.1); Hemoglobin 15.2 g/dL (12.9-16.9); Immature Granulocytes % 0.6 % (0-4); Lymphocytes # 1.9 K/mcL (0.6-4.6); Lymphocytes % 26.4 %; Mean Corpuscular HGB Conc 33.4 g/dL (31.6-35.5); Mean Corpuscular Hemoglobin 31.2 pg (28.0-33.3); Mean Corpuscular Volume 93.4 fL (83.0-100.0); Mean Platelet Volume 9.6 fL (9.4-12.4); Monocytes # 0.7 K/mcL (0.0-1.3); Monocytes % 10.1 %; Neutrophils # 4.4 K/mcL (1.6-8.9); Platelet Count 309 K/mcL (140-400); Red Blood Count 4.87 M/mcL (4.19-5.50); Red Cell Distribution Width 13.1 % (11.5-14.5); Segmented Neutrophils % 60.9 %; White Blood Count 7.2 K/mcL (4.3-11.1)
[2020-05-26 06:42] LABS: BUN/Creatinine Ratio 14 (6-26); Blood Urea Nitrogen 11 mg/dL (8-23); Calcium 8.8 mg/dL (8.6-10.3); Carbon Dioxide 28 mEq/L (23-29); Chloride 107 mEq/L (98-107); Glucose 96 mg/dL (70-105); Magnesium 2.1 mg/dL (1.6-2.6); Osmolality,Calculated 289 (280-300); Phosphorous 3.4 mg/dL (2.7-4.5); Potassium 4.1 mEq/L (3.5-5.1); Sodium 140 mEq/L (136-145); eGFR For African Americans > 60 (> 60); eGFR For Non-African Americans > 60 (> 60)
[2020-05-26] MEDS: Aspirin Enteric Coated 81 MG Tablet PO SCH (08:52)
[2020-05-26] MEDS: Metoprolol XL (24 HR) Succ 25 MG TAB.ER.24H PO SCH (08:52)
[2020-05-26] MEDS: Apixaban 5 MG TABLET PO SCH ×2 (08:52→20:16)
[2020-05-26] MEDS: DilTIAZem 50 MG/50 ML IV.SOLN IVC SCH ×3 (09:44→21:45)
[2020-05-27 05:00] LABS: BUN/Creatinine Ratio 16 (6-26); Blood Urea Nitrogen 13 mg/dL (8-23); Calcium 8.9 mg/dL (8.6-10.3); Carbon Dioxide 27 mEq/L (23-29); Chloride 106 mEq/L (98-107); Glucose 95 mg/dL (70-105); Osmolality,Calculated 286 (280-300); Potassium 4.1 mEq/L (3.5-5.1); Sodium 138 mEq/L (136-145); eGFR For African Americans > 60 (> 60); eGFR For Non-African Americans > 60 (> 60)
[2020-05-27] MEDS: Apixaban 5 MG TABLET PO SCH ×2 (08:39→20:27)
[2020-05-27] MEDS: Aspirin Enteric Coated 81 MG Tablet PO SCH (08:39)
[2020-05-28] MEDS: Aspirin Enteric Coated 81 MG Tablet PO SCH (08:16)
[2020-05-28] MEDS: Apixaban 5 MG TABLET PO SCH ×2 (08:17→20:42)
[2020-05-28 09:25] LABS: BUN/Creatinine Ratio 14 (6-26); Blood Urea Nitrogen 11 mg/dL (8-23); Calcium 8.8 mg/dL (8.6-10.3); Carbon Dioxide 28 mEq/L (23-29); Chloride 106 mEq/L (98-107); Glucose 84 mg/dL (70-105); Osmolality,Calculated 285 (280-300); Potassium 3.8 mEq/L (3.5-5.1); Sodium 138 mEq/L (136-145); eGFR For African Americans > 60 (> 60); eGFR For Non-African Americans > 60 (> 60)
[2020-05-29 03:32] LABS: BUN/Creatinine Ratio 16 (6-26); Blood Urea Nitrogen 12 mg/dL (8-23); Calcium 8.9 mg/dL (8.6-10.3); Carbon Dioxide 27 mEq/L (23-29); Chloride 107 mEq/L (98-107); Glucose 96 mg/dL (70-105); Osmolality,Calculated 288 (280-300); Sodium 139 mEq/L (136-145); eGFR For African Americans > 60 (> 60); eGFR For Non-African Americans > 60 (> 60)
[2020-05-29] MEDS: Apixaban 5 MG TABLET PO SCH (08:21)
[2020-05-29] MEDS: Aspirin Enteric Coated 81 MG Tablet PO SCH (08:21)
[2020-05-29 11:23] VITALS: BP 124/63
== END 2020-05-29 11:52 | disposition home or self-care (01) ==
LOC: EMEROOARM 10:56 → 2ANU 10:56 → SUATTDRO 13:11 → 2ANU 13:54
PROVIDERS: ADMIT Internal Medicine; ATTEND Internal Medicine

== ENCOUNTER 2021-01-10 18:44 | Observation (INO) ==
[2021-01-10 19:39] LABS: Basophils % 0.3 %; Eosinophils # 0.2 K/mcL (0.0-0.6); Eosinophils % 1.9 %; Hematocrit 45.4 % (37.5-50.1); Hemoglobin 15.2 g/dL (12.9-16.9); Immature Granulocytes % 0.2 % (0-4); Lymphocytes # 2.1 K/mcL (0.6-4.6); Mean Corpuscular HGB Conc 33.5 g/dL (31.6-35.5); Mean Corpuscular Hemoglobin 31.2 pg (28.0-33.3); Mean Corpuscular Volume 93.2 fL (83.0-100.0); Mean Platelet Volume 9.7 fL (9.4-12.4); Monocytes # 0.9 K/mcL (0.0-1.3); Monocytes % 10.4 %; Neutrophils # 5.6 K/mcL (1.6-8.9); Platelet Count 320 K/mcL (140-400); Red Blood Count 4.87 M/mcL (4.19-5.50); Red Cell Distribution Width 13.2 % (11.5-14.5); Segmented Neutrophils % 63.2 %; White Blood Count 8.9 K/mcL (4.3-11.1)
[2021-01-10 19:57] LABS: BUN/Creatinine Ratio 14 (6-26); Blood Urea Nitrogen 13 mg/dL (8-23); Calcium 9.6 mg/dL (8.6-10.3); Carbon Dioxide 29 mEq/L (23-29); Chloride 106 mEq/L (98-107); Glucose 93 mg/dL (70-105); Osmolality,Calculated 292 (280-300); Potassium 3.9 mEq/L (3.5-5.1); Sodium 141 mEq/L (136-145); Troponin I < 0.03 ng/mL (< 0.04); eGFR For African Americans > 60 (> 60); eGFR For Non-African Americans > 60 (> 60)
[2021-01-10] MEDS ORDERED: Acetaminophen 325 MG TABLET PO PRN (22:40)
[2021-01-10] MEDS ORDERED: Naloxone 0.4 MG/ML INJ IVP PRN (22:40)
[2021-01-10] MEDS ORDERED: Ondansetron 4 MG/2 ML VIAL IVP PRN (22:40)
[2021-01-10 23:16] LABS: Bilirubin,Urine Negative (Negative); Blood,Urine Negative (Negative); Clarity,Urine Clear (Clear); Color,Urine Colorless (Yellow); Glucose,Urine (UA) Normal (Normal); Ketones,Urine Negative (Negative); Leukocyte Esterase,Urine Negative (Negative); Nitrite,Urine Negative (Negative); PH,Urine 6.5 pH Units (5.0-8.0); Protein,Urine Negative (Neg-Trace); Specific Gravity,Urine 1.006 (1.010-1.025); Urobilinogen,Urine Normal (Normal)
[2021-01-11] MEDS ORDERED: Ipratropium/Albuterol Neb 3 ML IH PRN (00:12)
[2021-01-11 03:07] LABS: Basophils % 0.3 %; Eosinophils # 0.1 K/mcL (0.0-0.6); Eosinophils % 2.1 %; Hematocrit 41.4 % (37.5-50.1); Hemoglobin 13.7 g/dL (12.9-16.9); Immature Granulocytes % 0.3 % (0-4); Lymphocytes # 1.8 K/mcL (0.6-4.6); Lymphocytes % 29.1 %; Mean Corpuscular HGB Conc 33.1 g/dL (31.6-35.5); Mean Corpuscular Hemoglobin 30.6 pg (28.0-33.3); Mean Corpuscular Volume 92.6 fL (83.0-100.0); Mean Platelet Volume 9.6 fL (9.4-12.4); Monocytes # 0.7 K/mcL (0.0-1.3); Monocytes % 10.6 %; Neutrophils # 3.6 K/mcL (1.6-8.9); Platelet Count 264 K/mcL (140-400); Red Blood Count 4.47 M/mcL (4.19-5.50); Red Cell Distribution Width 13.3 % (11.5-14.5); Segmented Neutrophils % 57.6 %; White Blood Count 6.3 K/mcL (4.3-11.1)
[2021-01-11 03:16] LABS: INR 1.1; Prothrombin Time 12.1 Seconds (9.4-12.1)
[2021-01-11 03:28] LABS: Alanine Aminotransferase 20 Units/L (7-52); Albumin 3.6 g/dL (3.5-5.7); Albumin/Globulin Ratio 1.7 (1.1-2.2); Alkaline Phosphatase 64 Units/L (34-104); Aspartate Amino Transferase 19 Units/L (13-39); BUN/Creatinine Ratio 13 (6-26); Bilirubin,Direct 0.1 mg/dL (0.0-0.2); Bilirubin,Indirect 0.4 mg/dL (0.0-1.0); Bilirubin,Total 0.5 mg/dL (0.3-1.0); Blood Urea Nitrogen 10 mg/dL (8-23); Calcium 8.7 mg/dL (8.6-10.3); Carbon Dioxide 28 mEq/L (23-29); Chloride 108 mEq/L (98-107); Chol/HDL Ratio 2.6 (0-4.9); Cholesterol 102 mg/dL (< 200); Globulin 2.1 g/dL (2.4-3.5); Glucose 92 mg/dL (70-105); HDL Cholesterol 40 mg/dL (40-59); LDL Cholesterol,Calculated 41 mg/dL (< 100); Magnesium 2.2 mg/dL (1.6-2.6); Osmolality,Calculated 291 (280-300); Phosphorous 3.3 mg/dL (2.7-4.5); Potassium 3.9 mEq/L (3.5-5.1); Sodium 141 mEq/L (136-145); Total Protein 5.7 g/dL (6.4-8.9); Triglycerides 103 mg/dL (< 150); eGFR For African Americans > 60 (> 60); eGFR For Non-African Americans > 60 (> 60)
[2021-01-11 03:40] LABS: Thyroid Stimulating Hormone 1.491 mcIU/mL (0.340-5.600)
[2021-01-11] MEDS ORDERED: Apixaban 5 MG TABLET PO SCH (09:00)
[2021-01-11] MEDS ORDERED: Aspirin Enteric Coated 81 MG Tablet PO SCH (09:00)
[2021-01-11] MEDS ORDERED: Tiotropium 10 INH DOSE IH SCH (10:00)
[2021-01-11 11:38] VITALS: BP 116/55; PULSE 58; TEMP 97.7; O2SAT 95
== END 2021-01-11 13:46 | disposition home or self-care (01) ==
LOC: 2NENU 18:44 → EMEROOARM 18:44 → SUATTDRO 21:57 → 2NENU 22:32
PROVIDERS: ADMIT Internal Medicine; ATTEND Internal Medicine

== ENCOUNTER 2021-11-07 07:04 | Observation (INO) ==
[2021-11-07] MEDS ORDERED: Piperacillin/Tazobactam 3.375 GM in 0.9 % Sodium Chloride Mini Bag 100 ML IVPB ONE (08:52)
[2021-11-07] MEDS ORDERED: Ondansetron 4 MG/2 ML VIAL IVP ONE (08:58)
[2021-11-07 09:28] LABS: Basophils % 0.2 %; Hematocrit 48.1 % (37.5-50.1); Hemoglobin 16.1 g/dL (12.9-16.9); Immature Granulocytes % 0.6 % (0-4); Lymphocytes # 0.2 K/mcL (0.6-4.6); Lymphocytes % 1.5 %; Mean Corpuscular HGB Conc 33.5 g/dL (31.6-35.5); Mean Corpuscular Volume 92.7 fL (83.0-100.0); Mean Platelet Volume 9.3 fL (9.4-12.4); Monocytes # 0.5 K/mcL (0.0-1.3); Monocytes % 4.5 %; Neutrophils # 9.5 K/mcL (1.6-8.9); Platelet Count 212 K/mcL (140-400); Red Blood Count 5.19 M/mcL (4.19-5.50); Red Cell Distribution Width 13.9 % (11.5-14.5); Segmented Neutrophils % 93.2 %; White Blood Count 10.2 K/mcL (4.3-11.1)
[2021-11-07 09:44] LABS: Albumin 4.3 g/dL (3.5-5.7); Albumin/Globulin Ratio 1.8 (1.1-2.2); Bilirubin,Direct 0.2 mg/dL (0.0-0.2); Bilirubin,Indirect 0.8 mg/dL (0.0-1.0); Globulin 2.4 g/dL (2.4-3.5); Potassium 4.1 mEq/L (3.5-5.1); Total Protein 6.7 g/dL (6.4-8.9)
[2021-11-07 09:53] LABS: Platelet Estimate Normal (Normal)
[2021-11-07 10:11] LABS: Bilirubin,Urine Negative (Negative); Blood,Urine Trace (Negative); Clarity,Urine Clear (Clear); Color,Urine Yellow (Yellow); Glucose,Urine (UA) Normal (Normal); Ketones,Urine Negative (Negative); Leukocyte Esterase,Urine Negative (Negative); Mucus,Urine Few per lpf (None-Few); Nitrite,Urine Negative (Negative); PH,Urine 6.5 pH Units (5.0-8.0); Protein,Urine 30 mg/dL (Neg-Trace); Specific Gravity,Urine 1.028 (1.010-1.025); Squamous Epithelial Cell,Urine Few per hpf (None-Few); Urobilinogen,Urine Normal (Normal); WBC,Urine 0-3 per hpf (0-3)
[2021-11-07] MEDS ORDERED: Ondansetron 4 MG/2 ML VIAL IVP PRN (11:08)
[2021-11-07] MEDS ORDERED: Mag Hydrox/Al Hydrox/Simeth 30 ML UDC PO PRN (11:08)
[2021-11-07] MEDS ORDERED: Naloxone 0.4 MG/ML INJ IVP PRN (11:08)
[2021-11-07 13:36] LABS: Adenovirus Not Detected (Not Detect); Bordetella Pertussis Not Detected (Not Detect); Chlamydophila pneumoniae Not Detected (Not Detect); Coronavirus 229E Not Detected (Not Detect); Coronavirus HKU1 Not Detected (Not Detect); Coronavirus NL63 Not Detected (Not Detect); Coronavirus OC43 Not Detected (Not Detect); Human Metapneumovirus Not Detected (Not Detect); Human Rhinovirus/Enterovirus Not Detected (Not Detect); Influenza A Subtype 2009 H1 Not Detected (Not Detect); Influenza B Not Detected (Not Detect); Mycoplasma pneumoniae Not Detected (Not Detect); Parainfluenza Virus 1 Not Detected (Not Detect); Parainfluenza Virus 2 Not Detected (Not Detect); Parainfluenza Virus 3 Not Detected (Not Detect); Parainfluenza Virus 4 Not Detected (Not Detect); Respiratory Syncytial Virus Not Detected (Not Detect); SARS-CoV-2 Not Detected (Not Detect)
[2021-11-07] MEDS: Acetaminophen 325 MG TABLET PO PRN (13:46)
[2021-11-07] MEDS ORDERED: Ketorolac 30 MG/ML VIAL IVP ONE (14:30)
[2021-11-07] MEDS: 0.9 % Sodium Chloride 1,000 ML IVC SCH ×2 (14:45→16:05)
[2021-11-07] MEDS: Piperacillin/Tazobactam 3.375 GM in 0.9 % Sodium Chloride Mini Bag 100 ML IVPB SCH (16:04)
[2021-11-07] MEDS: Apixaban 5 MG TABLET PO SCH (21:00)
[2021-11-07] MEDS: Budesonide/Formoterol 160/4.5 1 PUFF INH IH SCH (21:54)
[2021-11-08] MEDS: Piperacillin/Tazobactam 3.375 GM in 0.9 % Sodium Chloride Mini Bag 100 ML IVPB SCH ×3 (00:31→15:29)
[2021-11-08] MEDS: Acetaminophen 325 MG TABLET PO PRN ×2 (00:35→15:29)
[2021-11-08 02:56] LABS: Hematocrit 41.7 % (37.5-50.1); Mean Corpuscular HGB Conc 34.1 g/dL (31.6-35.5); Mean Corpuscular Hemoglobin 30.7 pg (28.0-33.3); Mean Corpuscular Volume 90.3 fL (83.0-100.0); Platelet Count 184 K/mcL (140-400); Red Blood Count 4.62 M/mcL (4.19-5.50); Red Cell Distribution Width 13.9 % (11.5-14.5)
[2021-11-08 02:57] LABS: Hemoglobin 14.2 g/dL (12.9-16.9)
[2021-11-08 03:18] LABS: BUN/Creatinine Ratio 15 (6-26); Blood Urea Nitrogen 13 mg/dL (8-23); Carbon Dioxide 23 mEq/L (23-29); Chloride 102 mEq/L (98-107); Glucose 106 mg/dL (70-105); Magnesium 1.8 mg/dL (1.6-2.6); Osmolality,Calculated 273 (280-300); Potassium 3.5 mEq/L (3.5-5.1); Sodium 131 mEq/L (136-145)
[2021-11-08] MEDS ORDERED: Tiotropium 10 INH DOSE IH ONE (07:58)
[2021-11-08] MEDS: Tiotropium 10 INH DOSE IH SCH (07:59)
[2021-11-08] MEDS: Budesonide/Formoterol 160/4.5 1 PUFF INH IH SCH ×2 (07:59→20:56)
[2021-11-08] MEDS: Apixaban 5 MG TABLET PO SCH ×2 (08:18→20:12)
[2021-11-09] MEDS: Piperacillin/Tazobactam 3.375 GM in 0.9 % Sodium Chloride Mini Bag 100 ML IVPB SCH ×2 (00:03→08:42)
[2021-11-09 03:59] LABS: Hematocrit 43.1 % (37.5-50.1); Hemoglobin 14.2 g/dL (12.9-16.9); Mean Corpuscular HGB Conc 32.9 g/dL (31.6-35.5); Mean Corpuscular Hemoglobin 30.3 pg (28.0-33.3); Mean Corpuscular Volume 91.9 fL (83.0-100.0); Mean Platelet Volume 9.8 fL (9.4-12.4); Platelet Count 177 K/mcL (140-400); Red Blood Count 4.69 M/mcL (4.19-5.50); Red Cell Distribution Width 14.1 % (11.5-14.5); White Blood Count 6.4 K/mcL (4.3-11.1)
[2021-11-09 04:13] LABS: BUN/Creatinine Ratio 12 (6-26); Blood Urea Nitrogen 10 mg/dL (8-23); Calcium 8.2 mg/dL (8.6-10.3); Carbon Dioxide 28 mEq/L (23-29); Chloride 104 mEq/L (98-107); Glucose 94 mg/dL (70-105); Osmolality,Calculated 287 (280-300); Potassium 3.9 mEq/L (3.5-5.1); Sodium 139 mEq/L (136-145)
[2021-11-09 05:38] LABS: Eosinophils # 0.3 K/mcL (0.0-0.6); Monocytes # 0.7 K/mcL (0.0-1.3); Neutrophils # 4.5 K/mcL (1.6-8.9); Platelet Estimate Normal (Normal)
[2021-11-09] MEDS: Tiotropium 10 INH DOSE IH SCH (07:33)
[2021-11-09] MEDS: Budesonide/Formoterol 160/4.5 1 PUFF INH IH SCH (07:35)
[2021-11-09] MEDS: Apixaban 5 MG TABLET PO SCH (08:41)
[2021-11-09 11:42] VITALS: BP 110/76; PULSE 86; TEMP 97.7; O2SAT 96
== END 2021-11-09 13:51 | disposition home or self-care (01) ==
LOC: 3ANU 07:04 → EMEROOARM 07:04 → SUATTDRO 14:56 → 3ANU 16:20
PROVIDERS: ADMIT Internal Medicine; ATTEND Family Medicine

== ENCOUNTER 2021-12-12 07:03 | Observation (INO) ==
[2021-12-12] MEDS ORDERED: Iopamidol - 370 500 ML MLS IVP ONE (08:05)
[2021-12-12 08:24] LABS: Hematocrit 48.7 % (37.5-50.1); Hemoglobin 16.6 g/dL (12.9-16.9); Mean Corpuscular HGB Conc 34.1 g/dL (31.6-35.5); Mean Corpuscular Hemoglobin 31.1 pg (28.0-33.3); Mean Corpuscular Volume 91.4 fL (83.0-100.0); Mean Platelet Volume 9.4 fL (9.4-12.4); Platelet Count 231 K/mcL (140-400); Red Blood Count 5.33 M/mcL (4.19-5.50); Red Cell Distribution Width 13.8 % (11.5-14.5); White Blood Count 12.8 K/mcL (4.3-11.1)
[2021-12-12 08:34] LABS: INR 1.1; Prothrombin Time 12.4 Seconds (9.4-12.1)
[2021-12-12 08:37] LABS: Activated Partial Thrombo Time 33.1 Seconds (26.0-36.0)
[2021-12-12 08:46] LABS: Alanine Aminotransferase 22 Units/L (7-52); Albumin 4.2 g/dL (3.5-5.7); Albumin/Globulin Ratio 1.6 (1.1-2.2); Alkaline Phosphatase 65 Units/L (34-104); Aspartate Amino Transferase 20 Units/L (13-39); BUN/Creatinine Ratio 13 (6-26); Bilirubin,Direct 0.1 mg/dL (0.0-0.2); Bilirubin,Indirect 0.5 mg/dL (0.0-1.0); Bilirubin,Total 0.6 mg/dL (0.3-1.0); Blood Urea Nitrogen 12 mg/dL (8-23); Calcium 9.3 mg/dL (8.6-10.3); Carbon Dioxide 26 mEq/L (23-29); Chloride 103 mEq/L (98-107); Globulin 2.6 g/dL (2.4-3.5); Glucose 89 mg/dL (70-105); Magnesium 1.8 mg/dL (1.6-2.6); Osmolality,Calculated 283 (280-300); Phosphorous 1.5 mg/dL (2.7-4.5); Potassium 4.2 mEq/L (3.5-5.1); Sodium 137 mEq/L (136-145); Total Protein 6.8 g/dL (6.4-8.9)
[2021-12-12 08:47] LABS: Troponin I < 0.03 ng/mL (< 0.04)
[2021-12-12 08:56] LABS: Lymphocytes # 0.4 K/mcL (0.6-4.6); Monocytes # 0.1 K/mcL (0.0-1.3); Neutrophils # 12.3 K/mcL (1.6-8.9); Platelet Estimate Normal (Normal)
[2021-12-12 09:03] LABS: Bacteria,Urine Few per hpf (None-Few); Bilirubin,Urine Negative (Negative); Blood,Urine Small (Negative); Clarity,Urine Clear (Clear); Color,Urine Light-Yellow (Yellow); Glucose,Urine (UA) Normal (Normal); Ketones,Urine Negative (Negative); Leukocyte Esterase,Urine Negative (Negative); Mucus,Urine Few per lpf (None-Few); Nitrite,Urine Negative (Negative); PH,Urine 6.5 pH Units (5.0-8.0); Protein,Urine Trace mg/dL (Neg-Trace); Urobilinogen,Urine Normal (Normal); WBC,Urine 0-3 per hpf (0-3)
[2021-12-12] MEDS ORDERED: methylPREDNISolone 125 MG/2 ML VIAL IVP ONE (09:33)
[2021-12-12] MEDS ORDERED: Famotidine 20 MG/2 ML VIAL IVP ONE (09:33)
[2021-12-12] MEDS ORDERED: 0.9 % Sodium Chloride 1,000 ML ONE (09:39)
[2021-12-12] MEDS ORDERED: 0.9 % Sodium Chloride 1,000 ML IVC ONE (10:34)
[2021-12-12] MEDS ORDERED: Piperacillin/Tazobactam 3.375 GM in 0.9 % Sodium Chloride Mini Bag 100 ML IVPB ONE (10:45)
[2021-12-12 13:43] LABS: Influenza A PCR Negative (Negative); Influenza B PCR Negative (Negative); Resp. Syncytial Virus PCR Negative (Negative)
[2021-12-12 13:45] LABS: SARS-CoV-2 by PCR (In House) Negative (Negative)
[2021-12-12] MEDS ORDERED: Melatonin 3 MG TABLET PO PRN (14:20)
[2021-12-12] MEDS ORDERED: Naloxone 0.4 MG/ML INJ IVP PRN (14:20)
[2021-12-12] MEDS ORDERED: Acetaminophen 325 MG TABLET PO PRN (14:20)
[2021-12-12] MEDS ORDERED: Ondansetron ODT 4 MG TAB.RAPDIS SL PRN (14:20)
[2021-12-12] MEDS: Piperacillin/Tazobactam 3.375 GM in 0.9 % Sodium Chloride Mini Bag 100 ML IVPB SCH (20:28)
[2021-12-12] MEDS: Apixaban 5 MG TABLET PO SCH (20:28)
[2021-12-12] MEDS ORDERED: Budesonide/Formoterol 160/4.5 1 PUFF INH IH SCH (22:00)
[2021-12-13] MEDS ORDERED: Vancomycin 1,250 MG/262.5 ML IV.SOLN IVPB SCH
[2021-12-13 04:49] LABS: Basophils % 0.1 %; Hematocrit 44.5 % (37.5-50.1); Immature Granulocytes % 0.6 % (0-4); Lymphocytes # 0.3 K/mcL (0.6-4.6); Lymphocytes % 2.7 %; Mean Corpuscular HGB Conc 33.7 g/dL (31.6-35.5); Mean Corpuscular Hemoglobin 30.9 pg (28.0-33.3); Mean Corpuscular Volume 91.8 fL (83.0-100.0); Mean Platelet Volume 9.6 fL (9.4-12.4); Monocytes # 0.4 K/mcL (0.0-1.3); Monocytes % 3.8 %; Neutrophils # 9.4 K/mcL (1.6-8.9); Platelet Count 237 K/mcL (140-400); Red Blood Count 4.85 M/mcL (4.19-5.50); Segmented Neutrophils % 92.8 %; White Blood Count 10.1 K/mcL (4.3-11.1)
[2021-12-13 05:18] LABS: Alanine Aminotransferase 18 Units/L (7-52); Albumin 3.6 g/dL (3.5-5.7); Albumin/Globulin Ratio 1.6 (1.1-2.2); Alkaline Phosphatase 51 Units/L (34-104); Aspartate Amino Transferase 19 Units/L (13-39); BUN/Creatinine Ratio 17 (6-26); Bilirubin,Total 0.5 mg/dL (0.3-1.0); Blood Urea Nitrogen 12 mg/dL (8-23); Calcium 8.6 mg/dL (8.6-10.3); Carbon Dioxide 21 mEq/L (23-29); Chloride 108 mEq/L (98-107); Globulin 2.3 g/dL (2.4-3.5); Glucose 126 mg/dL (70-105); Osmolality,Calculated 285 (280-300); Phosphorous 2.6 mg/dL (2.7-4.5); Potassium 3.8 mEq/L (3.5-5.1); Sodium 137 mEq/L (136-145); Total Protein 5.9 g/dL (6.4-8.9)
[2021-12-13] MEDS: Piperacillin/Tazobactam 3.375 GM in 0.9 % Sodium Chloride Mini Bag 100 ML IVPB SCH (05:28)
[2021-12-13] MEDS: Apixaban 5 MG TABLET PO SCH (07:58)
[2021-12-13] MEDS ORDERED: Azithromycin 250 MG TABLET PO SCH (09:00)
[2021-12-13] MEDS ORDERED: Tiotropium 10 INH DOSE IH SCH (10:00)
[2021-12-13 10:48] VITALS: TEMP 97.6
[2021-12-13 14:34] VITALS: BP 122/72; PULSE 79; O2SAT 97
== END 2021-12-13 14:53 | disposition home or self-care (01) ==
LOC: 3BNU 07:03 → EMEROOARM 07:03 → SUATTDRO 14:42 → 3BNU 15:21
PROVIDERS: ADMIT General Practice; ATTEND Nurse Practitioner

== ENCOUNTER 2021-12-27 09:36 | Observation (INO) ==
[2021-12-27 10:31] LABS: Hematocrit 53.3 % (37.5-50.1); Hemoglobin 17.6 g/dL (12.9-16.9); Mean Corpuscular Hemoglobin 30.7 pg (28.0-33.3); Mean Corpuscular Volume 92.9 fL (83.0-100.0); Mean Platelet Volume 9.6 fL (9.4-12.4); Platelet Count 307 K/mcL (140-400); Red Blood Count 5.74 M/mcL (4.19-5.50); Red Cell Distribution Width 13.6 % (11.5-14.5); White Blood Count 23.6 K/mcL (4.3-11.1)
[2021-12-27] MEDS: 0.9 % Sodium Chloride 1,000 ML IVC SCH ×2 (10:36→11:06)
[2021-12-27] MEDS ORDERED: Piperacillin/Tazobactam 3.375 GM in 0.9 % Sodium Chloride Mini Bag 100 ML IVPB ONE (10:39)
[2021-12-27 10:54] LABS: Alanine Aminotransferase 22 Units/L (7-52); Albumin 4.5 g/dL (3.5-5.7); Albumin/Globulin Ratio 1.9 (1.1-2.2); Alkaline Phosphatase 77 Units/L (34-104); Aspartate Amino Transferase 19 Units/L (13-39); BUN/Creatinine Ratio 11 (6-26); Bilirubin,Direct 0.1 mg/dL (0.0-0.2); Bilirubin,Indirect 0.6 mg/dL (0.0-1.0); Bilirubin,Total 0.7 mg/dL (0.3-1.0); Blood Urea Nitrogen 11 mg/dL (8-23); Calcium 9.9 mg/dL (8.6-10.3); Carbon Dioxide 28 mEq/L (23-29); Chloride 102 mEq/L (98-107); Globulin 2.4 g/dL (2.4-3.5); Glucose 101 mg/dL (70-105); Lipase 18 Units/L (11-82); Osmolality,Calculated 290 (280-300); Potassium 3.9 mEq/L (3.5-5.1); Sodium 140 mEq/L (136-145); Total Protein 6.9 g/dL (6.4-8.9); Troponin I < 0.03 ng/mL (< 0.04)
[2021-12-27] MEDS ORDERED: Vancomycin 1,250 MG/262.5 ML IV.SOLN IVPB ONE (11:00)
[2021-12-27 11:18] LABS: Influenza A PCR Negative (Negative); Influenza B PCR Negative (Negative); Resp. Syncytial Virus PCR Negative (Negative)
[2021-12-27 11:22] LABS: SARS-CoV-2 by PCR (In House) Negative (Negative)
[2021-12-27 11:30] LABS: Bilirubin,Urine Negative (Negative); Blood,Urine Negative (Negative); Clarity,Urine Clear (Clear); Color,Urine Light-Yellow (Yellow); Glucose,Urine (UA) Normal (Normal); Granular Casts,Urine Few per lpf (None Seen); Hyaline Casts,Urine Many per lpf (None Seen); Ketones,Urine Negative (Negative); Leukocyte Esterase,Urine Negative (Negative); Mucus,Urine Few per lpf (None-Few); Nitrite,Urine Negative (Negative); Protein,Urine 30 mg/dL (Neg-Trace); RBC,Urine 0-3 per hpf (0-3); Specific Gravity,Urine 1.014 (1.010-1.025); Urobilinogen,Urine Normal (Normal)
[2021-12-27] MEDS ORDERED: Naloxone 0.4 MG/ML INJ IVP PRN (14:03)
[2021-12-27] MEDS ORDERED: Acetaminophen 325 MG TABLET PO PRN (14:03)
[2021-12-27] MEDS ORDERED: Melatonin 3 MG TABLET PO PRN (14:03)
[2021-12-27] MEDS ORDERED: *HR* Metoprolol 5 MG/5 ML VIAL IVP PRN (15:55)
[2021-12-27] MEDS: Piperacillin/Tazobactam 3.375 GM in 0.9 % Sodium Chloride Mini Bag 100 ML IVPB SCH (19:42)
[2021-12-27] MEDS: Apixaban 5 MG TABLET PO SCH (19:43)
[2021-12-27] MEDS: Budesonide/Formoterol 160/4.5 1 PUFF INH IH SCH (21:08)
[2021-12-28] MEDS ORDERED: Vancomycin 1,250 MG/262.5 ML IV.SOLN IVPB SCH (01:00)
[2021-12-28 02:05] LABS: Basophils % 0.1 %; Hematocrit 44.4 % (37.5-50.1); Immature Granulocytes % 0.2 % (0-4); Lymphocytes # 0.2 K/mcL (0.6-4.6); Lymphocytes % 2.2 %; Mean Corpuscular HGB Conc 32.9 g/dL (31.6-35.5); Mean Corpuscular Hemoglobin 30.3 pg (28.0-33.3); Mean Corpuscular Volume 92.1 fL (83.0-100.0); Mean Platelet Volume 9.8 fL (9.4-12.4); Monocytes # 0.3 K/mcL (0.0-1.3); Monocytes % 3.5 %; Neutrophils # 8.2 K/mcL (1.6-8.9); Platelet Count 248 K/mcL (140-400); Red Blood Count 4.82 M/mcL (4.19-5.50); Red Cell Distribution Width 13.9 % (11.5-14.5)
[2021-12-28 02:09] LABS: Calcium 8.4 mg/dL (8.6-10.3); Potassium 3.6 mEq/L (3.5-5.1)
[2021-12-28 03:44] LABS: White Blood Count 8.7 K/mcL (4.3-11.1)
[2021-12-28 03:48] LABS: Hemoglobin 14.6 g/dL (12.9-16.9)
[2021-12-28 04:45] LABS: Large Platelets Present (Not Present); Platelet Estimate Normal (Normal)
[2021-12-28] MEDS: Piperacillin/Tazobactam 3.375 GM in 0.9 % Sodium Chloride Mini Bag 100 ML IVPB SCH ×2 (05:04→11:51)
[2021-12-28] MEDS: Apixaban 5 MG TABLET PO SCH (08:24)
[2021-12-28] MEDS ORDERED: Tiotropium 10 INH DOSE IH SCH (10:00)
[2021-12-28] MEDS: Budesonide/Formoterol 160/4.5 1 PUFF INH IH SCH (10:17)
[2021-12-28 11:46] VITALS: BP 126/75; PULSE 85; TEMP 97.3; O2SAT 97
== END 2021-12-28 14:20 | disposition home or self-care (01) ==
LOC: EMEROOARM 09:36 → 3BNU 09:36 → SUATTDRO 12:50 → 3BNU 15:04
PROVIDERS: ADMIT Internal Medicine; ATTEND Registered Nurse